=== PATIENT | female | born 1995 | race Two or more races ===

== ENCOUNTER 2025-04-02 12:15 | Emergency (ER) | payer MEDICAID, SELFPAY ==
[2025-04-02 12:21] VITALS: BP 100/70; PULSE 86; RESP 18; TEMP 36.8; O2SAT 98; BMI 29.3
--- NOTE | 2025-04-02 12:36 | CRLHL7_ITS ---
For Patients: As a result of the Century Cures Act, medical imaging exams and procedure reports are released immediately into your electronic medical record. You may view this report before your referring provider. If you have questions, please contact your health care provider. INDICATION: Nausea, vomiting and right upper quadrant pain TECHNIQUE: Ultrasound abdomen limited. Sonographic images of the right upper quadrant were obtained using grant-scale and color Doppler images. COMPARISON: None FINDINGS: Liver: Normal in size and echotexture. No masses. No intrahepatic biliary dilatation. Gallbladder: There is demonstration questionable irregular thickening and decompressed appearance of a gallbladder with likely a 1 centimeter shadowing calculus at the level of the cystic duct.. There is sonographic tenderness to palpation. Common bile duct: 3 mm. Pancreas: Normal. Right kidney: Normal in size. Normal echotexture and cortex. No masses, stones, or hydronephrosis. Vasculature: Proximal abdominal aorta and IVC are normal. IMPRESSION: 1. Demonstration of a somewhat contracted appearance of a gallbladder within the gallbladder lumen with shadowing calculi and sonographic tenderness to palpation likely representing acute cholecystitis. Correlate with apparent history of prior cholecystectomy and consider follow-up with cross-sectional study such as CT versus MR for improved characterization. Dictated by Castillo Casillas MD @ 04/02/2025 2:27:18 PM (Electronically Signed)
[2025-04-02 12:54] LABS: Appearance Urine Clear (Clear)
[2025-04-02 13:01] LABS: Ur HCG Qualitative* Negative (Negative)
--- NOTE | 2025-04-02 13:03 | ED.GENADULT ---
HPI - General Adult General Chief complaint: Nausea/Vomiting Stated complaint: naueated/headache Time Seen by Provider: 04/02/25 12:17 Source: patient Mode of arrival: ambulatory Limitations: no limitations History of Present Illness HPI narrative: 29-year-old female presenting today with nausea, vomiting and diarrhea for 2 weeks. States that she has felt unwell for the last 2 weeks, has not been eating very much because even the side of food makes her want to vomit. Has been vomiting sporadically over the last 2 weeks. Feels constantly nauseated. States that she has around 4 episodes of diarrhea per day. Denies any blood in her vomit or stool. Denies any urinary symptoms such as increased frequency, urgency or dysuria. Patient has an IUD in, last period was about a month ago and was normal. Is uncertain if she is losing weight. Patient also complains of epigastric pain that comes and goes. She thinks it gets worse after she eats. She feels palpitations, feels like her heart is going to burst out of her chest at times. States that she saw her primary care provider who started her on lorazepam. This does not help her, just makes her sleepy. She was also started on omeprazole 1 or 2 days ago when she was seen at a different ER for the same symptoms. She states that some blood work was done but nothing else and she was given no answers. Related Data Home Medications ?Medication ?Instructions ?Recorded ?Confirmed omeprazole 20 mg delayed 20 mg PO DAILY 04/02/25 04/02/25 release,disintegrating tablet Allergies Allergy/AdvReac Type Severity Reaction Status Date / Time No Known Drug Allergies Allergy Verified 04/02/25 12:26 Review of Systems Status of ROS: Reports: 10 or more systems reviewed and unremarkable except as noted in History and below [facility] Social History Smoking Status: Never smoker Do you use any of these nicotine containing products: None Second hand tobacco smoke exposure: No How often do you have a drink containing alcohol: never AUDIT-C Alcohol total score: 0 Non-prescribed substance use: denies use Exam Narrative: Exam Narrative: Well-nourished well-developed patient in no acute distress. Alert and oriented. Answers questions appropriately. Mood is blue. Affect is slightly flat. Her Thoughts are goal oriented and rational. No tangential or magical thinking noted. Patient speaks in full sentences without needing to catch her breath. She often times whispers her answers. HEENT: Normocephalic atraumatic. Pupils are equally round reactive to light. Extraocular muscles are intact. Conjunctivae are moist without any icterus noted. Moist mucous membranes. Posterior pharynx is normal. Neck is soft without any lymphadenopathy or thyromegaly. No masses are appreciated. Cardiovascular: Heart is regular rate and rhythm S1 and S2 are present without any murmurs. Lungs: Clear to auscultation bilaterally no wheezes rhonchi or rales are appreciated. Patient takes deep breaths without any discomfort. Abdomen: Soft and nondistended with normal bowel sounds. Mild epigastric and right upper quadrant tenderness. Extremities: Bilateral lower extremities are without edema. Skin: Well perfused without any obvious rashes. Const: Vital Signs, click to edit/add: Vital Signs - 24 hr 04/02/25 12:21 04/02/25 13:44 Temperature 98.2 F 96.8 F L Pulse Rate [Right Pulse Oximeter] 86 85 Respiratory Rate 18 21 Blood Pressure [Ri ght Upper Arm] 100/70 112/71 Pulse Oximetry 98 100 Oxygen Delivery Me thod Room Air Room Air Course Course ED Course: Differential is very broad and ranges from depression to gastroenteritis to to gallstones to peptic ulcer disease to irritable bowel syndrome. EKG, read by me, shows normal sinus rhythm with a pulse of 75 with normal QRS, QTC and ME intervals. Blood work was unremarkable. While waiting for her results, I was able to review some of the patient's medical records, she has been to the ER twice in the clinic once for these symptoms. Blood work has been unremarkable each time however she was tested for H pylori on the and this did just result back positive. Right upper quadrant ultrasound shows a contracted gallbladder, cholelithiasis and concern for cholecystitis. However given her normal lab work and the fact that her pain is not getting any worse, I do think that she has cholecystitis clinically at this time. I did discussed patient with Dr. Lucero, who recommends treatment of H pylori and follow up outpatient in the surgical clinic. Vital Signs Vital signs: Initial Vital Signs Temperature 98.2 F 04/02/25 12:21 Temperature Source Temporal Artery Scan 04/02/25 12:21 Pulse Rate 86 04/02/25 12:21 Pulse Rhythm Regular 04/02/25 12:21 Pulse Strength 3+ Normal 04/02/25 12:21 Respiratory Rate 18 04/02/25 12:21 Blood Pressure 100/70 04/02/25 12:21 Blood Pressure Mean 80 04/02/25 12:21 Blood Pressure Position Sitting 04/02/25 12:21 Pulse Oximetry 98 04/02/25 12:21 Oxygen Delivery Method Room Air 04/02/25 12:21 Vital Signs Temperature 98.2 F 04/02/25 12:21 Pulse Rate 86 04/02/25 12:21 Respiratory Rate 18 04/02/25 12:21 Blood Pressure 100/70 04/02/25 12:21 Pulse Oximetry 98 04/02/25 12:21 Oxygen Delivery Method Room Air 04/02/25 12:21 Temperature 96.8 F L 04/02/25 13:44 Pulse Rate 85 04/02/25 13:44 Respiratory Rate 21 04/02/25 13:44 Blood Pressure 112/71 04/02/25 13:44 Pulse Oximetry 100 04/02/25 13:44 Oxygen Delivery Method Room Air 04/02/25 13:44 Medications Administered Medications: Discontinued Medications Generic Name Dose Route Start Last Admin Trade Name Freq PRN Reason Stop Dose Admin Sodium Chloride 1,000 mls @ 1,000 mls/hr 04/02/25 12:45 04/02/25 13:25 0.9 % Sodium Chloride 1000 Ml IV 04/02/25 13:44 1,000 mls/hr .Q1H JOSSUE Administration Ondansetron HCl 4 mg 04/02/25 12:35 04/02/25 13:25 Ondansetron 2 Mg/Ml Inj IVP 04/02/25 12:36 4 mg ONCE ONE Administration Medical Decision Making MDM Narrative Medical decision making narrative: 29-year-old female with H pylori. Treatment has already been called into her pharmacy for her. She also has cholelithiasis-patient will follow up outpatient in the surgical clinic next week. Medical Records Medical records reviewed: Yes I reviewed the patient's medical records Lab Data Lab results reviewed: Yes I reviewed the patient's lab results Labs: Lab Results 04/02/25 04/02/25 Range/Units 12:45 13:16 WBC 7.22 (4.50-11.00) K/uL RBC 5.25 H (4.00-5.20) m/uL Hgb 14.4 (12.0-16.0) gm/dL Hct 43.1 (33.0-51.0) % MCV 82 (80-100) fL MCH 27 (26-34) pg MCHC 33 (32-36) gm/dL RDW Coeff of Patricio 13.2 (11.5-15.5) % Plt Count 285 (140-440) K/uL Neut % (Auto) 66.3 (42.0-72.0) % Lymph % (Auto) 24.2 (20-44) % Ramsey % (Auto) 6.4 (0.0-11.0) % Eos % (Auto) 2.6 (0.0-7.0) % Baso % (Auto) 0.4 (0.0-3.0) % Neut # (Auto) 4.78 (1.7-7.0) K/uL Lymph # (Auto) 1.75 (0.90-2.90) K/uL Ramsey # (Auto) 0.50 (0.00-0.90) K/UL Eos # (Auto) 0.19 (0.00-0.50) K/uL Baso # (Auto) 0.03 (0.00-0.30) K/uL Abs Immat Gran (auto) 0.01 (0.00-0.30) K/uL Imm/Tot Granulo (auto) 0.1 % Sodium 138 (135-149) mmol/L Potassium 3.7 (3.6-5.1) mmol/L Chloride 104 (96-114) mmol/L Carbon Dioxide 25 (20-32) mmol/L Anion Gap 9 (7-15) mEq/L BUN 3 L (5-24) mg/dL Creatinine 0.5 (0.5-1.5) mg/dL Estimated Creat Clear 149.39 Estimated GFR 130 ml/min Glucose 97 (60-115) mg/dL Lactate 0.7 (0.5-1.9) mmol/L Calcium 9.9 (8.4-10.6) mg/dL Magnesium 1.9 (1.5-2.6) mg/dL Total Bilirubin 0.6 (0.1-1.5) mg/dL Direct Bilirubin 0.1 (0.0-0.5) mg/dL AST 26 (12-35) U/L ALT 14 (4-35) U/L Alkaline Phosphatase 96 (40-150) U/L Troponin I < 0.01 (0.01-0.04) ng/mL C-Reactive Protein 0.7 (0.5-1.0) mg/dL Total Protein 8.6 H (6.0-8.3) g/dL Albumin 4.5 (3.3-5.0) g/dL Lipase 32 (23-300) U/L TSH 0.500 (0.270-4.20) uIU/mL Urine Color Yellow (Yellow) Urine Appearance Clear (Clear) Urine pH 7.0 (5.0-8.5) Ur Specific [place] 1.010 (1.000-1.030) Urine Protein Negative (Negative) Urine Glucose (UA) Negative (Negative) Urine Ketones Negative (Negative) Urine Blood Negative (Negative) Urine Nitrite Negative (Negative) Urine Bilirubin Negative (Negative) Urine Urobilinogen 0.2 (0.2-1.0) Ur Leukocyte Esterase Negative (Negative) Urine RBC 0-2 (0-2) Urine WBC 0-2 (0-5) Ur Squamous Epith Cells Few (None-Few) Urine Bacteria None (None) Urine HCG, Qual Negative (Negative) Salicylates < 1.0 L (1.0-10) mg/dL Urine Opiates Screen Negative (Negative) Ur Oxycodone Screen Negative (Negative) Urine Methadone Screen Negative (Negative) Acetaminophen < 10.0 (10.0-30.0) ug/mL Ur Barbiturates Screen Negative (Negative) U Tricyclic Antidepress Negative (Negative) Ur Phencyclidine Scrn Negative (Negative) Ur Amphetamines Screen Negative (Negative) U Methamphetamines Scrn Negative (Negative) U Benzodiazepines Scrn Negative (Negative) Urine Cocaine Screen Negative (Negative) U Marijuana (THC) Screen Negative (Negative) Ur Drug Screen Comment See Note Ethyl Alcohol < 0.01 (0.01-0.03) % Monoscreen Negative (Negative) Imaging Data US - abdomen: Attestation: I have reviewed the pertinent imaging results. Radiologist's impression: TECHNIQUE: Ultrasound abdomen limited. Sonographic images of the right upper quadrant were obtained using grant-scale and color Doppler images. COMPARISON: None FINDINGS: Liver: Normal in size and echotexture. No masses. No intrahepatic biliary dilatation. Gallbladder: There is demonstration questionable irregular thickening and decompressed appearance of a gallbladder with likely a 1 centimeter shadowing calculus at the level of the cystic duct.. There is sonographic tenderness to palpation. Common bile duct: 3 mm. Pancreas: Normal. Right kidney: Normal in size. Normal echotexture and cortex. No masses, stones, or hydronephrosis. Vasculature: Proximal abdominal aorta and IVC are normal. IMPRESSION: 1. Demonstration of a somewhat contracted appearance of a gallbladder within the gallbladder lumen with shadowing calculi and sonographic tenderness to palpation likely representing acute cholecystitis. Correlate with apparent history of prior cholecystectomy and consider follow-up with cross-sectional study such as CT versus MR for improved characterization. ECG Data Attestation: I personally reviewed and interpreted this ECG as follows: Discharge Plan Discharge Clinical Impression: H. pylori infection, Cholelithiasis Patient Disposition: Home, Self-Care Condition: Stable Additional Instructions: You were diagnosed with a Helicobacter pylori infection that can cause abdominal discomfort, nausea and vomiting just like you are having. Treatment consists of taking 4 medications-all of these have been called into your pharmacy for you. You will also be given the phone number to the Surgical Outpatient Clinic today. You should call this number first thing Friday to set up a follow-up appointment late next week with Dr. Lucero or 1 of her partners. At this visit you will discuss the stones in your gallbladder and how to proceed. Prescriptions: No Action omeprazole 20 mg tablet,disintegrat, delay rel 20 mg PO DAILY Follow Up/Referrals: Provider,Not a Local [Primary Care Provider, Family Practice] Stand Alone Forms: [employer] Info Instructions
--- OUTSIDE RECORDS SUMMARY | 2025-04-02 13:03 | XMS_ITS | Clinical Summary ---
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 H.pylori Ag: Detected Reference Range: Not Detected Stool STOOL SPECIMEN / Unknown 03/31/2025 5:00 PM CDT 03/31/2025 7:28 PM CDT Estefanía BUENO MICROBIOLOGY Final Resu lt [employer] [facility] [address] [place] [address], [employer] [address] [place] [address] * TROPONIN T (HS) ACUTE W/2HR REFLEX (03/29/2025 12:19 PM CDT) Pathologist [facility] TROPONIN T HS <6 6-10 ng/L ng/L 03/29/2025 12:50 PM CDT [facility] Blood BLOOD SPECIMEN / Unknown Venipuncture / Unknown 03/29/2025 12:19 PM CDT 03/29/2025 12:22 PM CDT Narrative [facility] - 03/29/2025 12:50 PM CDT hs-cTnT (Elecsys Troponin T Gen 5) concentration (s) above the sex-specific 99th percentile (16 ng/L or greater for males or 11 ng/L or greater for females) are indicative of myocardial injury. If initial hs-cTnT <=100 ng/L at presentation, a 0h/2h ABSOLUTE (ng/L) delta change (rising or falling) of >=10 ng/L suggests a significant change, whereas a 0h/2h delta change <=3 ng/L suggests no significant change. If initial hs-cTnT >100 ng/L at presentation, a 0h/2h/ RELATIVE (percent, %) delta change of 20% is suggested to distinguish patients with acute vs. chronic myocardial injury. There are multiple etiologies that can cause hs-cTnT increases above the 99th percentile (myocardial injury) other than acute myocardial infarction. Clinical context and careful clinical evaluation are critical for diagnosis and risk-stratification. The diagnosis of acute myocardial infarction requires a rising and/or falling pattern in hs-cTnT concentrations with at least one value above the sex-specific 99th percentile PLUS at least one of the following clinical criteria: ischemic symptoms, new or presumed new significant ST-T wave changes or new LBBB, development of pathological Q waves, imaging evidence of new loss of viable myocardium or new regional wall motion abnormality, or identification of intracoronary atherothrombosis or an acute angiographic culprit on coronary angiography. In appropriate low-risk patients with a non-ischemic electrocardiogram without active chest pain with a symptom onset >3-hours without recurrence, a single initial hs-cTnT<6 ng/L identifies patient with a very low risk in emergency department patient population. Daniel BUENO CHEMISTRY Fin al Result Performing Organization Address [facility] de Phone Number [facility] [address] [place] [address] [phone] * TSH (03/29/2025 12:19 PM CDT) [facility] Signature TSH 0.75 0.27 - 4.20 uIU/mL 03/29/2025 12:50 PM CDT [facility] Blood BLOOD SPECIMEN / Unknown Venipuncture / Unknown 03/29/2025 12:19 PM CDT 03/29/2025 12:22 PM CDT [facility] - 03/29/2025 12:50 PM CDT In Adults, TSH values between 5.00 and 10.00 uIU/ml do not necessarily indicate the presence of Hypothyroidism. Correlation with clinical findings such as presence of goiter and/or Thyroperoxidase (TPO) Antibody may be helpful. For more information please refer to MEGHAN 2004; 291: 228-238. Daniel BUEON CHEMISTRY Fin al Result Performing Organization Address [facility] de Phone Number [facility] [address] [place] [id number] * (ABNORMAL) C-REACTIVE PROTEIN (03/29/2025 12:19 PM CDT) [facility] C-REACTIVE PROTEIN 0.7(H) <0.5 mg/dL 03/29/2025 12:50 PM CDT [facility] Blood BLOOD SPECIMEN / Unknown Venipuncture / Unknown 03/29/2025 12:19 PM CDT 03/29/2025 12:22 PM CDT Daniel BUENO CHEMISTRY Fin al Result Performing Organization Address [facility] Co de Phone Number [facility] [address] [place] [address] * EKG 12 LEAD (03/29/2025 12:03 PM CDT) [facility] Interpretation Normal sinus rhythm with sinus arrhythmia Nonspecific ST abnormality Abnormal ECG No previous ECGs available baseline artifact intervals normal no STEMI no previous for comparison BEYOND NOW Ventricular Rate 90 BPM BEYOND NOW Atrial Rate 90 BPM BEYOND NOW P-R Interval 154 ms BEYOND NOW QRS Duration 70 ms BEYOND NOW QT 332 ms BEYOND NOW QTc 406 ms BEYOND NOW P [place] 57 degrees BEYOND NOW R [place] 79 degrees BEYOND NOW T [place] 57 degrees BEYOND NOW 03/29/2025 12:0 3 PM CDT 03/29/2025 1:14 PM CDT Daniel BUENO EKG ORD Fin al Result Performing Organization Address City/[facility] Co de Phone Number BEYOND NOW [place], [place] * STREP A PCR (01/30/2025 3:08 PM CDT) Pathologist [facility] GROUP A STREP Negative 01/31/2025 5:08 PM CDT [facility] Throat SPECIMEN FROM THROAT / Unknown Non-Blood / Unknown 01/30/2025 3:08 PM CDT 01/30/2025 3:28 PM CDT Maria R E Furlong HEAD REFRIGERATING ENGINEER MICROBIOLOGY Final Result [facility] [address] [place] [address], [place] * THROAT RAPID STREP A WITH REFLEX (01/30/2025 3:08 PM CDT) STREP A ANTIGEN Negative 01/30/2025 3:28 PM CDT [facility] Comment:PCR to follow. Throat SPECIMEN FROM THROAT / Unknown Non-Blood / Unknown 01/30/2025 3:08 PM CDT 01/30/2025 3:14 PM CDT us Maria R E Igorlong HEAD REFRIGERATING ENGINEER MICROBIOLOGY Final Result [facility] [address] [place] [address] * REGULATORY LEADER THIN PREP PAP SCREEN IMAGED (10/11/2024 4:23 PM CASH MANAGEMENT ASSOCIATE) Case Report Gynecologic Cytology Report Case: [id number] Authorizing Provider: Estefanía Mercado PA Collected: 10/11/2024 1623 Ordering Location: [facility] Received: 10/11/2024 [facility] First Screen: Kaleigh Mcmanus Rescreen: Evon Wheeler Specimen: REGULATORY LEADER ThinPrep Vial Screening, Cervical 10/26/2024 1:50 PM CASH MANAGEMENT ASSOCIATE [employer]- [facility] INTERPRETATION/ RESULT UNSATISFACTORY FOR EVALUATION (UNS) (none) 10/26/2024 1:[address] [facility] at 1350 CASH MANAGEMENT ASSOCIATE SPECIMEN ADEQUACY Specimen processed and examined, but unsatisfactory for evaluation of epithelial abnormality because of: Scant cellularity 10/26/2024 1:50 PM CASH MANAGEMENT ASSOCIATE [employer] EN[facility]AL LABORATORY HPV REQUEST HPV and PAP 10/26/2024 1:50 PM CASH MANAGEMENT ASSOCIATE [employer] [facility] LAB[facility]AT[facility] Date of LMP 09/27/2024 10/26/2024 1:50 PM CASH MANAGEMENT ASSOCIATE [employer] [facility]AT[facility] Last Pap Date 09/18/17 10/26/2024 1:50 PM CASH MANAGEMENT ASSOCIATE [facility] Last Pap Result NIL 1:50 PM CASH MANAGEMENT ASSOCIATE [facility] Abnormal Pap or [place] Bx in last 5 years No 10/26/2024 1:50 PM CASH MANAGEMENT ASSOCIATE [facility] LAB[facility]ATORY Menstrual Status Hormonally Suppressed 10/26/2024 1:50 PM CASH MANAGEMENT ASSOCIATE [facility] [place] Bx Done Today No 10/26/2024 1:50 PM CASH MANAGEMENT ASSOCIATE [facility] Additional Information None given 10/26/2024 1:50 PM CASH MANAGEMENT ASSOCIATE [facility] Comment: Cytology is screened at [facility] - [address], [place] [address] and [facility] - [address], [place] [address] and [facility] - [address] [place] [address] Interpreted at [facility] - [address], [place] [address] Automated Review Successful 10/26/2024 1:50 PM CASH MANAGEMENT ASSOCIATE [facility] Comment:Specimen processed s uccessfully by automated facility maintenance supervisor device, ThinPrep Imaging System, [employer] ANCILLARY TESTING REGULATORY LEADER HPV Ordered, Please see separate report 10/26/2024 1:50 PM CASH MANAGEMENT ASSOCIATE [facility] Note The pap test is a screening technique, not a diagnostic procedure. It is used primarily to screen for squamous cancers and precursor lesions. Published studies have shown that it is subject to both false negative and false positive results. The pap test should not be used as the sole means to diagnose or exclude pre-malignant and malignant lesions. 10/26/2024 1:50 PM CASH MANAGEMENT ASSOCIATE [facility] Other (Cervical) Non-Blood / Unknown 10/11/2024 4:23 PM CASH MANAGEMENT ASSOCIATE 10/11/2024 4:23 PM CASH MANAGEMENT ASSOCIATE us Estefanía BUENO PATHOLOGY/CYTOLOGY Final R esult [facility] [address] [place] [address], [place] * HIV EXTERNAL (03/16/2020) EXTERNAL HIV Negative [facility] Blood BLOOD SPECIMEN / Unknown [facility] Final Result [facility] [address] [place] [address] from Last 3 Months or Most Recently Relevant to Health Maintenance [place] [facility] [place] [id number] [address] [address] [place] [address] Advance Directives * Full Code (Latest Code Status on File) Date Activated Date Inactivated Comments 08/14/2023 6:02 PM 08/16/2023 2:44 PM Question Answer Comments Code Status Discussion: Reviewed Preferences * Full Code Date Activated Date Inactivated Comments 08/14/2023 11:52 AM 08/14/2023 6:02 PM Question Answer Comments Code Status Discussion: Unable to Assess Preferences, Provider to review later * Full Code Date Activated Date Inactivated Comments 08/06/2023 8:02 PM 08/10/2023 4:53 PM Question Answer Comments Code Status Discussion: Reviewed Preferences * Full Code Date Activated Date Inactivated Comments 10/13/2020 7:44 AM 10/16/2020 4:09 PM Question Answer Comments Code Status Discussion: Not Discussed * Full Code Date Activated Date Inactivated Comments 03/13/2019 3:29 PM 03/15/2019 4:43 PM Care Teams Lace Winder Relationship Specialty Start Date End Date Estefanía Mercado PA [address] [place] [address] PCP - General Physician Clerical Aide Teacher 10/29/16
[2025-04-02 13:05] LABS: Cannabinoid Screen Urine Negative (Negative); Methamphetamines Screen Urine Negative (Negative); Tricyclic Antidepressant Urine Negative (Negative)
[2025-04-02 13:25] LABS: Lactate* 0.7 mmol/L (0.5-1.9)
[2025-04-02] MEDS: ONDANSETRON 2 MG/ML inj 4 MG IVP (13:25)
[2025-04-02 13:44] VITALS: BP 112/71; PULSE 85; RESP 21; TEMP 36; O2SAT 100
[2025-04-02 13:48] LABS: Hematocrit 43.1 % (33.0-51.0); Hemoglobin* 14.4 gm/dL (12.0-16.0); Immature Granulocytes Abs Auto 0.01 K/uL (0.00-0.30); Immature Granulocytes Pct Auto 0.1 %; Lymphocytes Absolute Auto 1.75 K/uL (0.90-2.90); Mean Corpuscular HGB Conc 33 gm/dL (32-36); Mean Corpuscular Hemoglobin 27 pg (26-34); Mean Corpuscular Volume 82 fL (80-100); RDW Coefficient of Variation % 13.2 % (11.5-15.5); Red Blood Count 5.25 m/uL (4.00-5.20); White Blood Count* 7.22 K/uL (4.50-11.00)
[2025-04-02 13:49] LABS: Albumin* 4.5 g/dL (3.3-5.0); Chloride* 104 mmol/L (96-114); Slide Review Reflex No; Sodium* 138 mmol/L (135-149)
[2025-04-02 13:50] LABS: Potassium* 3.7 mmol/L (3.6-5.1)
[2025-04-02 13:52] LABS: Anion Gap 9 mEq/L (7-15); Blood Urea Nitrogen* 3 mg/dL (5-24); Carbon Dioxide* 25 mmol/L (20-32); Creatinine* 0.5 mg/dL (0.5-1.5); Est. Creatinine Clearance* 149.39; Estimated Glomerular Filt Rate 130 ml/min
[2025-04-02 13:53] LABS: Alanine Aminotransferase* 14 U/L (4-35); Alkaline Phosphatase* 96 U/L (40-150); Aspartate Amino Transferase* 26 U/L (12-35); Bilirubin Direct* 0.1 mg/dL (0.0-0.5); Bilirubin Total* 0.6 mg/dL (0.1-1.5); Calcium* 9.9 mg/dL (8.4-10.6); Glucose* 97 mg/dL (60-115); Total Protein* 8.6 g/dL (6.0-8.3)
[2025-04-02 13:56] LABS: Mono Screen* Negative (Negative)
[2025-04-02 14:01] LABS: Acetaminophen* < 10.0 ug/mL (10.0-30.0); Ethanol* < 0.01 % (0.01-0.03); Salicylate* < 1.0 mg/dL (1.0-10)
== END 2025-04-02 15:42 | disposition home or self-care (01) ==
PROVIDERS: Emergency Provider Family Medicine
DX: K80.20 Calculus of gallbladder without cholecystitis without obstruction (principal); B96.81 Helicobacter pylori [H. pylori] as the cause of diseases classified elsewhere
CPT/HCPCS: 36415; 76705; 80048; 80076; 80143; 80179; 80306; 81001; 81025; 82077; 83605; 83690; 83735; 84443; 84484; 85025; 86140; 86308; 87045; 87046; 87086; 87427; 87493; 93005; 96374; 99284; J2405; J7030

== ENCOUNTER 2025-04-17 02:14 | Day surgery (SDC) | payer MEDICAID, SELFPAY ==
[2025-04-17] VITALS (31 sets, daily range): BP systolic 97–128; BP diastolic 57–90; PULSE 61–108; RESP 14–18; TEMP 36.3–37.4; O2SAT 94–100; BMI 29.4; BMI 29.0
--- OUTSIDE RECORDS SUMMARY | 2025-04-17 02:17 | XMS_ITS | Clinical Summary ---
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 BEYOND NOW QRS Duration 70 ms BEYOND NOW QT 332 ms BEYOND NOW QTc 406 ms BEYOND NOW P [place] 57 degrees BEYOND NOW R [place] 79 degrees BEYOND NOW T [place] 57 degrees BEYOND NOW 03/29/2025 12:0 3 PM CDT 03/29/2025 1:14 PM CDT Daniel BUENO EKG ORD Fin al Result BEYOND NOW [place], [place] * STREP A PCR (01/30/2025 3:08 PM CDT) GROUP A STREP Negative 01/31/2025 5:08 PM CDT [facility] Throat SPECIMEN FROM THROAT / Unknown Non-Blood / Unknown 01/30/2025 3:08 PM CDT 01/30/2025 3:28 PM CDT Maria R June INSURANCE EXAMINER MICROBIOLOGY Sonia l Result Performing Organization Address [facility] Co de Phone Number [facility] [address] [place] [address], [place] * THROAT RAPID STREP A WITH REFLEX (01/30/2025 3:08 PM CDT) STREP A ANTIGEN Negative 01/30/2025 3:28 PM CDT [facility] Comment:PCR to follow. Throat SPECIMEN FROM THROAT / Unknown Non-Blood / Unknown 01/30/2025 3:08 PM CDT 01/30/2025 3:14 PM CDT Maria R June INSURANCE EXAMINER MICROBIOLOGY Sonia l Result Performing Organization Address [facility]/ZIP Co de Phone Number [facility] [address] [place] [address] * CURATOR [employer] THIN PREP PAP SCREEN IMAGED (10/11/2024 4:23 PM STOCK OR DELIVERY CLERK) Case Report Gynecologic Cytology Report Case: [id number] Authorizing Provider: Estefanía Mercado PA Collected: 10/11/2024 1623 Ordering Location: [facility] Received: 10/11/2024 1623 Clinic First Screen: Kaleigh Mcmanus Rescreen: Evon Wheeler Specimen: [employer]ATOR [employer] ThinPrep Vial Screening, Cervical 10/26/2024 1:50 PM STOCK OR DELIVERY CLERK [facility] INTERPRETATION/ RESULT UNSATISFACTORY FOR EVALUATION (UNS) (none) 10/26/2024 1:50 PM STOCK OR DELIVERY CLERK [facility] at 1350 STOCK OR DELIVERY CLERK SPECIMEN ADEQUACY Specimen processed and examined, but unsatisfactory for evaluation of epithelial abnormality because of: Scant cellularity 10/26/2024 1:50 PM STOCK OR DELIVERY CLERK [facility] HPV REQUEST HPV and PAP 10/26/2024 1:50 PM STOCK OR DELIVERY CLERK [facility] Date of LMP 09/27/2024 10/26/2024 1:50 PM STOCK OR DELIVERY CLERK [facility] Last Pap Date 09/18/17 10/26/2024 1:50 PM STOCK OR DELIVERY CLERK [facility] Last Pap Result NIL 1:50 PM STOCK OR DELIVERY CLERK [facility] Abnormal Pap or [place] Bx in last 5 years No 10/26/2024 1:50 PM STOCK OR DELIVERY CLERK [facility] Menstrual Status Hormonally Suppressed 10/26/2024 1:50 PM STOCK OR DELIVERY CLERK [facility] [place] Bx Done Today No 10/26/2024 1:50 PM STOCK OR DELIVERY CLERK [facility] Additional Information None given 10/26/2024 1:50 PM STOCK OR DELIVERY CLERK [facility] Comment: Cytology is screened at [facility] - [address], [place] [address] and [facility] - [address], [place] [address] and [facility] - [address] [place] [address] Interpreted at [facility] - [address], [place] [address] Automated Review Successful 10/26/2024 1:50 PM STOCK OR DELIVERY CLERK [facility] Comment:Specimen processed s uccessfully by automated weekend receptionist device, ThinPrep Imaging System, [employer] ANCILLARY TESTING CURATOR [employer]OOLOG[employer] MUSE[employer] HPV Ordered, Please see separate report 10/26/2024 1:50 PM STOCK OR DELIVERY CLERK [facility] Note The pap test is a screening technique, not a diagnostic procedure. It is used primarily to screen for squamous cancers and precursor lesions. Published studies have shown that it is subject to both false negative and false positive results. The pap test should not be used as the sole means to diagnose or exclude pre-malignant and malignant lesions. 10/26/2024 1:50 PM STOCK OR DELIVERY CLERK [facility] Other (Cervical) Non-Blood / Unknown 10/11/2024 4:23 PM STOCK OR DELIVERY CLERK 10/11/2024 4:23 PM STOCK OR DELIVERY CLERK Estefanía BUENO PATHOLOGY/CYTOLOGY Final R esult [facility] [address] [place] [address], * HIV EXTERNAL (03/16/2020) EXTERNAL HIV Negative [facility] Blood BLOOD SPECIMEN / Unknown [facility] Final Result [facility] [address] [place] [address] from Last 3 Months or Most Recently Relevant to Health Maintenance Insurance [facility] [place] [id number] [address] [address] [place] [address] Advance Directives * Full Code (Latest Code [...] 3:29 PM 03/15/2019 4:43 PM Care Teams Fishing Tool Operator Relationship Specialty Start Date End Date Estefanía Mercado PA [address] [place] [address] PCP - General Physician Rate Clerk 10/29/16
[2025-04-17 02:41] LABS: Appearance Urine Clear (Clear)
--- NOTE | 2025-04-17 03:08 | CRLHL7_ITS ---
For Patients: As a result of the Century Cures Act, medical imaging exams and procedure reports are released immediately into your electronic medical record. You may view this report before your referring provider. If you have questions, please contact your health care provider. INDICATION: Right upper quadrant pain. Known stones and gallbladder wall thickening 2 weeks ago COMPARISON: 04/02/2025 TECHNIQUE: Gerard-scale and color Doppler ultrasound of the right upper quadrant. FINDINGS: Pancreas: Largely obscured by bowel gas but normal where seen. Liver: Normal hepatic echogenicity and normal echotexture. No mass. Patent portal vein with normal directional flow. Gallbladder and bile ducts: The gallbladder is contracted. Gallbladder wall is circumferentially thick and there is pericholecystic edema. Likely stone near the gallbladder neck. No intrahepatic or extrahepatic biliary ductal dilatation. The common bile duct measures 3 mm. RIGHT Kidney: Renal length: 10.6 cm Parenchyma: Normal thickness and normal echogenicity. Cyst: None Mass: None Calculi: None Urinary tract: Pelvicaliectasis. The anterior to posterior renal pelvic dimension is 4 millimeters. Similar appearance on the prior exam. Abdominal aorta: Normal in the upper abdomen. IVC: Normal in the upper abdomen. Ascites: None. IMPRESSION: Contracted gallbladder with possible stone at the gallbladder neck. Dictated by Sally Babin MD @ 04/17/2025 4:32:12 AM (Electronically Signed)
--- NOTE | 2025-04-17 03:13 | ED_ITS ---
HPI - General Adult General Chief complaint: Nausea/Vomiting Stated complaint: h.Pylori, fast heartbeat, vomiting Time Seen by Provider: 04/17/25 02:47 Source: patient Mode of arrival: ambulatory Limitations: no limitations History of Present Illness HPI narrative: 29-year-old female presents to the emergency department with persistent nausea and epigastric area abdominal pain. Symptoms worse over the past 2 hours per her report. No fever. No trauma or injury. She has had a bumpy 3 week course of abdominal pain and nausea. Prior ED note from 2 weeks ago reviewed. She had normal labs but ultrasound finding showing a gallstone and a questionable area of focal inflammation concerning for possible cholecystitis. Based on the fact her labs were normal and her primary symptom was heartburn, treatment for H pylori was performed. It sounds like this testing was performed through [facility]. Patient reports that she completed the antibiotics today but is not feeling better. It is difficult to hold down any food, difficult to drink. I see that she had an outpatient visit with Dr. Rajan rather than the surgeon that she was encouraged to follow-up with last week. He appropriately [facility] for cholecystectomy and performed preoperative assessment. Patient continues on anti-reflux medication, omeprazole. Did not try any other interventions prior to coming to ED. does not sound as though she has access to anti nausea medications. No bloody stools, no hematemesis. No fever. No prior history of bowel obstructions. She has had 2 prior , the last being almost 2 years ago. That procedure sounds like it was complicated by blood clots and she was treated with blood thinners thereafter the sounds like she does not have to take those long-term. Denies any current urinary or gynecological symptoms Past medical history notable for no major long-term health problems. Recent H pylori diagnosis and questionable borderline cholecystitis from a couple weeks ago. Nonsmoker. Five children. ROS is notable for the GI symptoms as described above, otherwise denies times 12 systems. Related Data Home Medications ?Medication ?Instructions ?Recorded ?Confirmed omeprazole 20 mg delayed 20 mg PO DAILY 04/02/2512/07 release,disintegrating tablet famotidine 20 mg tablet 20 mg PO BID 04/06/25 metoclopramide HCl 10 mg tablet 10 mg PO QID 08/03/25 08/03/25 Allergies Allergy/AdvReac Type Severity Reaction Status Date / Time No Known Drug Allergies Allergy Verified 04/17/25 02:31 [facility] Medical History H. pylori infection ?A04.8 - Other specified bacterial intestinal infections (ICD-10) Cholelithiasis ?K80.20 - Calculus of gallbladder without cholecystitis without obstruction (ICD-10) GERD (gastroesophageal reflux disease) ?K21.9 - Gastro-esophageal reflux disease without esophagitis (ICD-10) Social History Narrative: , five kids, nonsmoker, no EtOH What is your current living situation?: declined to answer Problems where you live: declined to answer In the past 12 months, utilities in danger of being shut off: declined to answer In past 12 months, lack of transportation kept you from medical appts, meetings, work, or getting things needed for daily living: declined to answer In the past 12 mos, have been you worried that your food would run out before you had money to buy more?: declined to answer In the past 12 mos, the food you bought just didn't last and you didn't have money to buy more?: declined to answer Smoking Status: Never smoker Do you use any of these nicotine containing products: None Second hand tobacco smoke exposure: No How often do you have a drink containing alcohol: never AUDIT-C Alcohol total score: 0 Non-prescribed substance use: denies use How often does anyone, including family, friends and others, physically hurt you : decline to answer How often does anyone, including family, friends and others, insult or talk down to you: decline to answer How often does anyone, including family, friends and others, threaten you with harm: decline to answer How often does anyone, including family, friends and others, scream or curse at you: decline to answer Health Related Social Needs: unsheltered homelessness (Z59.02) Exam Const: Vital Signs, click to edit/add: Vital Signs - 24 hr 04/17/25 02:28 04/17/25 03:18 Temperature 98.1 F Pulse Rate [Right Pulse Oximeter] 82 Respiratory Rate 18 Blood Pressure [Ri ght Upper Arm] 104/66 Pulse Oximetry 99 99 Oxygen Delivery Me thod Room Air Documenting provider has reviewed patient's vital signs: yes Common normals: no apparent distress and alert General appearance: cooperative and well kempt HENMT: Common normals: moist oral mucous membranes and oropharynx normal Head and scalp: normal to inspection Face and sinus: normal facial exam Other: Lips are dry and cracked. Remainder of oropharynx is normal Eye: Common normals: conjunctivae normal General eye: normal appearance of both eyes Conjunctiva: conjunctiva(e) normal Neck & C-Spine: Common normals: full ROM, no lymphadenopathy and no meningeal signs General: normal visual inspection Resp: Common normals: normal respiratory effort, no use of accessory muscles and clear to auscultation bilaterally Effort & inspection: able to speak in complete sentences Auscultation: clear to auscultation bilaterally Cardio: Common normals: regular rate, regular rhythm, S1 normal heart sound, S2 normal heart sound and no murmurs Rate: regular rate Rhythm: regular rhythm Heart sounds: S1 normal and S2 normal GI: Common normals: Normal to inspection, nondistended, normoactive bowel sounds present, soft to palpation and no hepatosplenomegaly Palpation: soft and no hepatosplenomegaly Other: Tender to epigastrium but also the right upper quadrant. No rebound tenderness or guarding Back & Pelvis: Common normals: thoracic and lumbar spine normal to inspection Extremity: Common normals: normal to inspection, full ROM and normal capillary refill Neuro: Common normals: moves all extremities Sensorium/orientation: alert Meningeal signs: no meningeal signs Speech: speech normal Psych: Common normals: speech normal Appearance: well kempt Attitude: engaged Activity/motor behavior: appropriate eye contact Speech: normal speech Mood and affect: euthymic mood Insight: insight good Judgement: judgment good Skin: Common normals: no rashes or lesions noted General skin exam: no ra shes or lesions noted Course Course ED Course: 29-year-old female with persistent nausea and abdominal pain with previous normal lab work with the exception of H pylori, recent completion of treatment and prior ultrasound demonstrating gallstones and possible early cholecystitis 2 weeks ago. Complaining mainly of reflux symptoms today, requesting treatment. Differential diagnosis including cholecystitis, pancreatitis, choledocholithiasis, biliary dyskinesia, gastritis, persistent H.pylori symptoms, peptic ulcer, multiple other GI considerations. Will place peripheral IV, give 1 L of IV fluid, typical GI labs, repeat ultrasound. GI cocktail, Zofran ordered. Will have a delay in imaging, will need to call in ultrasound from home. Reevaluation(s) Time of Reevaluation #1: 05:00 Reevaluation #1: Updated patient on findings. Spoke with surgeon. Recommending cholecystectomy which I agree. She has requested admission to the hospitalist, they have been paged. Will give Zosyn. NPO. Dilaudid ordered p.r.n., Zofran ordered p.r.n.. Maintenance LR ordered. test added to labs, suspect will be negative as she has an IUD. Patient is medically cleared for surgery with no additional perioperative recommendations at this time. Update: Hospitalist has accepted care. Vital Signs Vital signs: Initial Vital Signs Temperature 98.1 F 04/17/25 02:28 Temperature Source Temporal Artery Scan 04/17/25 02:28 Pulse Rate 82 04/17/25 02:28 Respiratory Rate 18 04/17/25 02:28 Blood Pressure 104/66 04/17/25 02:28 Blood Pressure Mean 78 04/17/25 02:28 Blood Pressure Position Supine 04/17/25 02:28 Pulse Oximetry 99 04/17/25 02:28 Oxygen Delivery Method Room Air 04/17/25 02:28 Vital Signs Temperature 98.1 F 04/17/25 02:28 Pulse Rate 82 04/17/25 02:28 Respiratory Rate 18 04/17/25 02:28 Blood Pressure 104/66 04/17/25 02:28 Pulse Oximetry 99 04/17/25 02:28 Oxygen Delivery Method Room Air 04/17/25 02:28 Temperature 98.1 F 04/17/25 02:28 Pulse Rate 82 04/17/25 02:28 Respiratory Rate 18 04/17/25 02:28 Blood Pressure 104/66 04/17/25 02:28 Pulse Oximetry 99 04/17/25 03:18 Oxygen Delivery Method Room Air 04/17/25 02:28 Medications Administered Medications: Generic Name Dose Route Start Last Admin Trade Name Freq PRN Reason Stop Dose Admin Hydromorphone HCl 0.2 - 0.5 mg 04/17/25 04:54 04/17/25 05:03 Hydromorphone 0.5 Mg/0.5 Ml Inj IVP 0.5 mg Q1H PRN Administration Pain Piperacillin Sod/Tazobactam 100 mls @ 200 mls/hr 04/17/25 05:00 04/17/25 05:02 Sod 3.375 gm/ Sodium Chloride IVPB 200 mls/hr Q6H JOSSUE Administration Discontinued Medications Generic Name Dose Route Start Last Admin Trade Name Freq PRN Reason Stop Dose Admin Lactated Ringer's 1,000 mls @ 1,000 mls/hr 04/17/25 03:06 04/17/25 04:06 Lactated Ringers 1000 Ml IV 04/17/25 04:05 Infused .Q1H ONE Infusion Lidocaine/Aluminum/Magnesium/Simeth 30 ml 04/17/25 03:06 04/17/25 03:15 Gi Cocktail (Visc Lido/Antacid) 30 Ml PO 04/17/25 03:07 30 ml ONCE ONE Administration Ondansetron HCl 4 mg 04/17/25 03:06 04/17/25 03:14 Ondansetron 2 Mg/Ml Inj IVP 04/17/25 03:07 4 mg ONCE ONE Administration Medical Decision Making Lab Data Lab results reviewed: Yes I reviewed the patient's lab results Lab results narrative: Labs are reassuring. No signs of pancreatitis or biliary obstruction. No significant leukocytosis. test negative as expected. Labs: Lab Results 04/17/25 04/17/25 04/17/25 Range/Units 02:30 03:12 04:31 WBC 7.13 (4.50-11.00) K/uL RBC 5.08 (4.00-5.20) m/uL Hgb 14.0 (12.0-16.0) gm/dL Hct 41.9 (33.0-51.0) % MCV 83 (80-100) fL MCH 28 (26-34) pg MCHC 33 (32-36) gm/dL RDW Coeff of Patricio 13.2 (11.5-15.5) % Plt Count 279 (140-440) K/uL Neut % (Auto) 66.8 (42.0-72.0) % Lymph % (Auto) 21.5 (20-44) % Andrew % (Auto) 9.8 (0.0-11.0) % Eos % (Auto) 1.4 (0.0-7.0) % Baso % (Auto) 0.4 (0.0-3.0) % Neut # (Auto) 4.76 (1.7-7.0) K/uL Lymph # (Auto) 1.53 (0.90-2.90) K/uL Andrew # (Auto) 0.70 (0.00-0.90) K/UL Eos # (Auto) 0.10 (0.00-0.50) K/uL Baso # (Auto) 0.03 (0.00-0.30) K/uL Abs Immat Gran (auto) 0.01 (0.00-0.30) K/uL Imm/Tot Granulo (auto) 0.1 % Sodium 138 (135-149) mmol/L Potassium 3.8 (3.6-5.1) mmol/L Chloride 103 (96-114) mmol/L Carbon Dioxide 27 (20-32) mmol/L Anion Gap 8 (7-15) mEq/L BUN < 2 L (5-24) mg/dL Creatinine 0.5 (0.5-1.5) mg/dL Estimated Creat Clear 143.36 Estimated GFR 130 ml/min Glucose 105 (60-115) mg/dL Calcium 9.6 (8.4-10.6) mg/dL Total Bilirubin 0.5 (0.1-1.5) mg/dL AST 26 (12-35) U/L ALT 19 (4-35) U/L Alkaline Phosphatase 72 (40-150) U/L C-Reactive Protein < 0.5 L (0.5-1.0) mg/dL Total Protein 7.8 (6.0-8.3) g/dL Albumin 4.3 (3.3-5.0) g/dL Lipase 21 L (23-300) U/L Urine Color Yellow (Yellow) Urine Appearance Clear (Clear) Urine pH 6.0 (5.0-8.5) Ur Specific [place] 1.010 (1.000-1.030) Urine Protein Negative (Negative) Urine Glucose (UA) Negative (Negative) Urine Ketones Trace A (Negative) Urine Blood 2+ A (Negative) Urine Nitrite Negative (Negative) Urine Bilirubin Negative (Negative) Urine Urobilinogen 0.2 (0.2-1.0) Ur Leukocyte Esterase 1+ A (Negative) Urine RBC 2-5 A (0-2) Urine WBC 5-10 A (0-5) Ur Squamous Epith Cells Few (None-Few) Urine Bacteria Few A (None) Urine HCG, Qual Negative (Negative) Lab Acknowledgement Test Added Imaging Data US - abdomen: Attestation: I have reviewed the pertinent imaging results. My impression: Thickened gallbladder wall with pericholecystic edema. Gallstone noted as well. Please note the Radiology does not comment in the impression about the thickened gallbladder wall but does mention it in the body of the report. It is quite notable on the image. Radiologist's impression: Gallbladder and bile ducts: The gallbladder is contracted. Gallbladder wall is circumferentially thick and there is pericholecystic edema. Likely stone near the gallbladder neck. No intrahepatic or extrahepatic biliary ductal dilatation. The common bile duct measures 3 mm. RIGHT Kidney: Renal length: 10.6 cm Parenchyma: Normal thickness and normal echogenicity. Cyst: None Mass: None Calculi: None Urinary tract: Pelvicaliectasis. The anterior to posterior renal pelvic dimension is 4 millimeters. Similar appearance on the prior exam. Abdominal aorta: Normal in the upper abdomen. IVC: Normal in the upper abdomen. Ascites: None. IMPRESSION: Contracted gallbladder with possible stone at the gallbladder neck. Dictated by Sally Babin MD @ 04/17/2025 4:32:12 AM Discharge Plan Discharge Clinical Impression: Acute cholecystitis Patient Disposition: XFER to OR Follow Up/Referrals: Moses Rajan MD [Staff Physician, Family Practice]
[2025-04-17] MEDS: ONDANSETRON 2 MG/ML inj 4 MG IVP ×2 (03:14→09:01)
[2025-04-17] MEDS: LACTATED RINGERS 1000 ML 1,000 ML IV (03:14)
[2025-04-17] MEDS: GI COCKTAIL (VISC LIDO/ANTACID) 30 ML PO (03:15)
[2025-04-17 03:18] LABS: Hematocrit* 41.9 % (33.0-51.0); Hemoglobin* 14.0 gm/dL (12.0-16.0); Immature Granulocytes Abs Auto 0.01 K/uL (0.00-0.30); Immature Granulocytes Pct Auto 0.1 %; Lymphocytes Absolute Auto 1.53 K/uL (0.90-2.90); Mean Corpuscular HGB Conc 33 gm/dL (32-36); Mean Corpuscular Hemoglobin 28 pg (26-34); Mean Corpuscular Volume 83 fL (80-100); RDW Coefficient of Variation % 13.2 % (11.5-15.5); Red Blood Count* 5.08 m/uL (4.00-5.20); White Blood Count* 7.13 K/uL (4.50-11.00)
[2025-04-17 03:19] LABS: Slide Review Reflex No
[2025-04-17 03:32] LABS: Albumin* 4.3 g/dL (3.3-5.0); Chloride* 103 mmol/L (96-114); Potassium* 3.8 mmol/L (3.6-5.1); Sodium* 138 mmol/L (135-149)
[2025-04-17 03:34] LABS: Creatinine* 0.5 mg/dL (0.5-1.5); Est. Creatinine Clearance* 143.36; Estimated Glomerular Filt Rate 130 ml/min
[2025-04-17 03:35] LABS: Alanine Aminotransferase* 19 U/L (4-35); Alkaline Phosphatase* 72 U/L (40-150); Anion Gap 8 mEq/L (7-15); Aspartate Amino Transferase* 26 U/L (12-35); Bilirubin Total* 0.5 mg/dL (0.1-1.5); Carbon Dioxide* 27 mmol/L (20-32); Total Protein* 7.8 g/dL (6.0-8.3)
[2025-04-17 03:36] LABS: Blood Urea Nitrogen* < 2 mg/dL (5-24); Calcium* 9.6 mg/dL (8.4-10.6); Glucose* 105 mg/dL (60-115)
[2025-04-17 04:38] LABS: Ur HCG Qualitative* Negative (Negative)
[2025-04-17] MEDS: PIPERACILLIN/TAZOBACTAM 3.375 GM in 0.9 % SODIUM CHLORIDE Mini-bag 100 ML IVPB (05:02)
[2025-04-17] MEDS: LACTATED RINGERS 1000 ML 1,000 ML 125 ML IV (05:33)
--- NOTE | 2025-04-17 06:00 | W.PM.THH&P_ITS ---
Telehealth- H&P: HPI History of Present Illness Date Seen: 04/17/25 Chief complaint: h.Pylori, fast heartbeat, vomiting Narrative: Silvia Rose is seen as an Interactive Telehealth visit. The patient is a 29-year-old female with a past medical history notable for prior VTE in , recent diagnosis of H. pylori infection that is been treated who has been having abdominal pain for 3 weeks. The pain is epigastric, aching, worse with food. The patient says the pain is not really getting worse but has not improved. Is been associated with nausea and vomiting that has been ongoing for the last 3 weeks. Over the last several days the vomiting has been particularly severe. She is also had some occasional chills. She has not noticed a fever. She has not had any chest pain or shortness of breath. She has not had any dysuria. She has had a fairly extensive workup for the abdominal pain she was found to have H. pylori and has been treated. She underwent an ultrasound of the right upper quadrant the initial ultrasound was fairly reassuring, she was actually seen by general surgery and in the setting of H. pylori infection and an equivocal ultrasound planned was for continued monitoring. She presented on the day of admission dehydrated, tachycardic with continued abdominal discomfort. She had a repeat right upper quadrant ultrasound which showed significant gallbladder wall thickening concerning for acute cholecystitis. She was given IV fluids, pain medication and Zosyn. The ER discussed the case with Dr. Lucero from general surgery who plans for cholecystectomy. Review of Systems Status of ROS: Reports: 10 or more systems reviewed and unremarkable except as noted in History and below [facility] Medical History H. pylori infection ?A04.8 - Other specified bacterial intestinal infections (ICD-10) Cholelithiasis ?K80.20 - Calculus of gallbladder without cholecystitis without obstruction (ICD-10) GERD (gastroesophageal reflux disease) ?K21.9 - Gastro-esophageal reflux disease without esophagitis (ICD-10) Social History Narrative: , five kids, nonsmoker, no EtOH What is your current living situation?: declined to answer Problems where you live: declined to answer In the past 12 months, utilities in danger of being shut off: declined to answer In past 12 months, lack of transportation kept you from medical appts, meetings, work, or getting things needed for daily living: declined to answer In the past 12 mos, have been you worried that your food would run out before you had money to buy more?: declined to answer In the past 12 mos, the food you bought just didn't last and you didn't have money to buy more?: declined to answer Smoking Status: Never smoker Do you use any of these nicotine containing products: None Second hand tobacco smoke exposure: No How often do you have a drink containing alcohol: never AUDIT-C Alcohol total score: 0 Non-prescribed substance use: denies use How often does anyone, including family, friends and others, physically hurt you : decline to answer How often does anyone, including family, friends and others, insult or talk down to you: decline to answer How often does anyone, including family, friends and others, threaten you with harm: decline to answer How often does anyone, including family, friends and others, scream or curse at you: decline to answer Health Related Social Needs: unsheltered homelessness (Z59.02) Meds Home Medications and Allergies Home Medications ?Medication ?Instructions ?Recorded ?Confirmed ?Type omeprazole 20 mg delayed 20 mg PO DAILY 04/02/2512/07 History release,disintegrating tablet famotidine 20 mg tablet 20 mg PO BID 04/06/25 History metoclopramide HCl 10 mg tablet 10 mg PO QID 04/17/25 04/17/25 History Allergies Allergy/AdvReac Type Severity Reaction Status Date / Time No Known Drug Allergies Allergy Verified 04/17/25 02:31 Exam Narrative Exam Narrative: Physical Exam GENERAL: ?vital signs reviewed, well developed and nourished, in no distress HEENT: pupils are equal round, extraocular movements are grossly within normal limits and oral mucosa is very dry NECK: Supple without lymphadenopathy or thyromegaly according to nursing staff examination observation HEART: Borderline tachycardic rate and regular rhythm without any rubs, murmurs, or gallops. LUNGS: Clear to auscultation bilaterally with good air movement throughout ABDOMEN: Observation from nurse assisted exam, abdomen appears soft, has mild diffuse tenderness in the upper abdomen, and nondistended with Positive bowel sounds noted. EXTREMITIES: Strength and sensation is observed to be grossly within normal limits in the upper and lower extremities.? No focal strength deficit is obs erved. SKIN:? Observed warm and dry with color normal Const Vital Signs, click to edit/add: Vital Signs - 24 hr 04/17/25 02:28 04/17/25 03:18 04/17/25 03:19 Temperature 98.1 F Pulse Rate 77 Pulse Rate [Right Pulse Oximeter] 82 Respiratory Rate 18 18 Blood Pressure 118/85 Blood Pressure [Right Upper Arm] 104/66 Pulse Oximetry 99 99 100 Oxygen Delivery Method Room Air 04/17/25 03:32 04/17/25 04:01 04/17/25 04:31 Temperature Pulse Rate 71 74 74 Pulse Rate [Right Pulse Oximeter] Respiratory Rate 18 18 18 Blood Pressure 109/73 97/57 L 108/77 Blood Pressure [Right Upper Arm] Pulse Oximetry 100 100 99 Oxygen Delivery Method 04/17/25 05:01 04/17/25 05:32 Temperature 98.2 F 98.2 F Pulse Rate 79 70 Pulse Rate [Right Pulse Oximeter] Respiratory Rate 18 18 Blood Pressure 107/76 101/61 Blood Pressure [Right Upper Arm] Pulse Oximetry 100 98 Oxygen Delivery Method Hospitalist - H&P: Result Labs Labs: Short CBC 04/17/25 Range/Units 03:12 WBC 7.13 (4.50-11.00) K/uL Hgb 14.0 (12.0-16.0) gm/dL Hct 41.9 (33.0-51.0) % Plt Count 279 (140-440) K/uL BMP 04/17/25 03:12 Sodium 138 Potassium 3.8 Chloride 103 Carbon Dioxide 27 BUN < 2 L Creatinine 0.5 Glucose 105 Calcium 9.6 Liver Function 04/17/25 Range/Units 03:12 Total Bilirubin 0.5 (0.1-1.5) mg/dL AST 26 (12-35) U/L ALT 19 (4-35) U/L Alkaline Phosphatase 72 (40-150) U/L Albumin 4.3 (3.3-5.0) g/dL Urine 04/17/25 Range/Units 02:30 Urine Color Yellow (Yellow) Urine Appearance Clear (Clear) Urine pH 6.0 (5.0-8.5) Ur Specific [place] 1.010 (1.000-1.030) Urine Protein Negative (Negative) Urine Glucose (UA) Negative (Negative) Assessment and Plan Assessment and plan (1) History of venous thromboembolism: Status: Acute (2) Acute cholecystitis: Status: Acute Plan Acute cholecystitis Cholelithiasis N.p.o. Continue Zosyn until seen by general surgery Plan for cholecystectomy IV fluids, antiemetics IV hydromorphone as needed for pain Reassuring labs without leukocytosis Abdominal ultrasound: The patient is a 29-year-old female with a past medical history notable for prior VTE in , recent diagnosis of H. pylori infection that is been treated who has been having abdominal pain for 3 weeks. The pain is epigastric, aching, worse with food. The patient says the pain is not really getting worse but has not improved. Is been associated with nausea and vomiting that has been ongoing for the last 3 weeks. Over the last several days the vomiting has been particularly severe. She is also had some occasional chills. She has not noticed a fever. She has not had any chest pain or shortness of breath. She has not had any dysuria. She has had a fairly extensive workup for the abdominal pain she was found to have H. pylori and has been treated. She underwent an ultrasound of the right upper quadrant the initial ultrasound was fairly reassuring, she was actually seen by general surgery and in the setting of H. pylori infection and an equivocal ultrasound planned was for continued monitoring. She presented on the day of admission dehydrated, tachycardic with continued abdominal discomfort. She had a repeat right upper quadrant ultrasound which showed significant gallbladder wall thickening concerning for acute cholecystitis. She was given IV fluids, pain medication and Zosyn. The ER discussed the case with Dr. Lucero from general surgery who plans for cholecystectomy. GERD with H. pylori Per patient recently completed treatment History of VTE SCDs, consider chemoprophylaxis if decreased mobility Prior to admission home medications that were felt to be needed immediately have been ordered. The remainder of the home medications will await pharmacy re conciliation and will be ordered by the attending provider in the a.m. Telehealth Visit: Today's History and Physical is provided via interactive telehealth by Dr. Duncan Infante MD. Patient is located at [facility]. Provider is located at [facility]. Nursing staff assisted with the patient's exam. The visit being done today meets criteria for a telehealth visit and the patient or patients parent/guardian is aware the visit is a telehealth visit. Camera Start Time: 545 Camera End Time: 554 Medical Complexity: High, use of high risk medications including IV opioids ~~~~~~~~~~~~~~~~ Dr. Duncan Infante Telehealth: Statement Statement Telehealth Visit: Today's History and Physical is provided via interactive telehealth by Duncan Infante MD.? Patient is located at [facility].? Provider is located at [facility].? Nursing staff assisted with the patient's exam. The visit being done today meets criteria for a telehealth visit and the patient or patient?s parent/guardian is aware the visit is a telehealth visit. Camera Start Time: 05:45 Camera End Time: 05:55
--- NOTE | 2025-04-17 06:35 | PC.NURSE ---
The patient arrived to the floor via bed at 0530 but was capable of walking herself into her new room, albeit with some dizziness. No pain or nausea on admission. Previously reported pain of the epigastric area. Unremarkable assessment. Requesting her head scarf to stay on while in her surgery. Educated on need to stay NPO before their procedure and we have gone over all admission information. ?
[2025-04-17] MEDS: SODIUM CHLORIDE 0.9 % (FLUSH) 10 ML SYRINGE 5 ML IVF (08:25)
[2025-04-17] MEDS: BUPIVACAINE 0.5% 30 ML 20 ML INJECTION (09:36)
--- NOTE | 2025-04-17 10:37 | PM.GSCN ---
History of Present Illness Consult details Date Seen: 04/17/25 Consult date: 04/17/25 Narrative: Patient is known to this provider. I had an initial consultation with her in clinic for persistent nausea and epigastric abdominal pain. At that time she had a recent diagnosis of H pylori. She has since completed her course of antibiotics and PPI, with no improvement in her symptoms. The pain does get worse after eating. On workup she does have evidence of gallstones and some gallbladder wall thickening on ultrasound. Liver panel is within normal limits Review of Systems Status of ROS: Reports: 10 or more systems reviewed and unremarkable except as noted in History and below [facility] Medical History H. pylori infection ?A04.8 - Other specified bacterial intestinal infections (ICD-10) Cholelithiasis ?K80.20 - Calculus of gallbladder without cholecystitis without obstruction (ICD-10) GERD (gastroesophageal reflux disease) ?K21.9 - Gastro-esophageal reflux disease without esophagitis (ICD-10) Social History Narrative: , five kids, nonsmoker, no EtOH What is your current living situation?: I presently have a place to live Problems where you live: no known problems Problems where you live details: NA In the past 12 months, utilities in danger of being shut off: no In past 12 months, lack of transportation kept you from medical appts, meetings, work, or getting things needed for daily living: no In the past 12 mos, have been you worried that your food would run out before you had money to buy more?: never true In the past 12 mos, the food you bought just didn't last and you didn't have money to buy more?: never true Highest level of school completed/degree received: high school graduate Smoking Status: Never smoker Do you use any of these nicotine containing products: None Second hand tobacco smoke exposure: Yes How often do you have a drink containing alcohol: never AUDIT-C Alcohol total score: 0 Non-prescribed substance use: denies use Caffeine: Yes (Monthly) How often does anyone, including family, friends and others, physically hurt you: never How often does anyone, including family, friends and others, insult or talk down to you: never How often does anyone, including family, friends and others, threaten you with harm: never How often does anyone, including family, friends and others, scream or curse at you: never service: No Meds Home Medications and Allergies Home Medications ?Medication ?Instructions ?Recorded ?Confirmed ?Type famotidine 20 mg tablet 20 mg PO BID 04/06/25 04/17/25 History metoclopramide HCl 10 mg tablet 10 mg PO QID 04/17/25 04/17/25 History omeprazole 20 mg capsule,delayed 20 mg PO BID 04/17/25 04/17/25 History release Allergies Allergy/AdvReac Type Severity Reaction Status Date / Time No Known Drug Allergies Allergy Verified 04/17/25 02:31 Exam Narrative: Exam Narrative: General: Alert and oriented, no acute distress Respiratory: Equal breath rise, maintained on room air CV: Well perfused Abdomen: Soft, nontender and nondistended. Const: Vital Signs, click to edit/add: Vital Signs - 24 hr 04/17/25 02:28 04/17/25 03:18 04/17/25 03:19 Temperature 98.1 F Pulse Rate 77 Pulse Rate [Left P ulse Oximeter] Pulse Rate [Right Pulse Oximeter] 82 Respiratory Rate 18 18 Blood Pressure 118/85 Blood Pressure [Le ft Arm] Blood Pressure [Ri ght Upper Arm] 104/66 Pulse Oximetry 99 99 100 Oxygen Delivery Me thod Room Air 04/17/25 03:32 04/17/25 04:01 04/17/25 04:31 Temperature Pulse Rate 71 74 74 Pulse Rate [Left P ulse Oximeter] Pulse Rate [Right Pulse Oximeter] Respiratory Rate 18 18 18 Blood Pressure 109/73 97/57 L 108/77 Blood Pressure [Le ft Arm] Blood Pressure [Ri ght Upper Arm] Pulse Oximetry 100 100 99 Oxygen Delivery Me thod 04/17/25 05:01 04/17/25 05:32 04/17/25 05:52 Temperature 98.2 F 98.2 F 97.9 F Pulse Rate 79 70 Pulse Rate [Left P ulse Oximeter] 79 Pulse Rate [Right Pulse Oximeter] Respiratory Rate 18 18 16 Blood Pressure 107/76 101/61 Blood Pressure [Le ft Arm] 108/77 Blood Pressure [Ri ght Upper Arm] Pulse Oximetry 100 98 98 Oxygen Delivery Me thod Room Air 04/17/25 05:52 04/17/25 07:41 04/17/25 07:41 Temperature 97.8 F Pulse Rate 62 Pulse Rate [Left P ulse Oximeter] 62 Pulse Rate [Right Pulse Oximeter] Respiratory Rate 18 16 16 Blood Pressure 105/72 Blood Pressure [Le ft Arm] Blood Pressure [Ri ght Upper Arm] Pulse Oximetry 98 100 Oxygen Delivery Me thod Room Air Room Air Results Labs Labs: Abnormal lab results 04/17/25 04/17/25 Range/Units 02:30 03:12 BUN < 2 L (5-24) mg/dL C-Reactive Protein < 0.5 L (0.5-1.0) mg/dL Lipase 21 L (23-300) U/L Urine Ketones Trace A (Negative) Urine Blood 2+ A (Negative) Ur Leukocyte Esterase 1+ A (Negative) Urine RBC 2-5 A (0-2) Urine WBC 5-10 A (0-5) Urine Bacteria Few A (None) Diabetes panel 04/17/25 Range/Units 03:12 Sodium 138 (135-149) mmol/L Potassium 3.8 (3.6-5.1) mmol/L Chloride 103 (96-114) mmol/L Carbon Dioxide 27 (20-32) mmol/L BUN < 2 L (5-24) mg/dL Creatinine 0.5 (0.5-1.5) mg/dL Glucose 105 (60-115) mg/dL Calcium 9.6 (8.4-10.6) mg/dL AST 26 (12-35) U/L ALT 19 (4-35) U/L Alkaline Phosphatase 72 (40-150) U/L Total Protein 7.8 (6.0-8.3) g/dL Albumin 4.3 (3.3-5.0) g/dL Calcium panel 04/17/25 Range/Units 03:12 Calcium 9.6 (8.4-10.6) mg/dL Albumin 4.3 (3.3-5.0) g/dL Pituitary panel 04/17/25 Range/Units 03:12 Sodium 138 (135-149) mmol/L Potassium 3.8 (3.6-5.1) mmol/L Chloride 103 (96-114) mmol/L Carbon Dioxide 27 (20-32) mmol/L BUN < 2 L (5-24) mg/dL Creatinine 0.5 (0.5-1.5) mg/dL Glucose 105 (60-115) mg/dL Calcium 9.6 (8.4-10.6) mg/dL Adrenal panel 04/17/25 Range/Units 03:12 Sodium 138 (135-149) mmol/L Potassium 3.8 (3.6-5.1) mmol/L Chloride 103 (96-114) mmol/L Carbon Dioxide 27 (20-32) mmol/L BUN < 2 L (5-24) mg/dL Creatinine 0.5 (0.5-1.5) mg/dL Glucose 105 (60-115) mg/dL Calcium 9.6 (8.4-10.6) mg/dL Total Bilirubin 0.5 (0.1-1.5) mg/dL AST 26 (12-35) U/L ALT 19 (4-35) U/L Alkaline Phosphatase 72 (40-150) U/L Total Protein 7.8 (6.0-8.3) g/dL Albumin 4.3 (3.3-5.0) g/dL All other labs normal. Imaging Abdominal ultrasound report/results: report reviewed and image reviewed Progress Note:A&P Assessment and plan (1) Acute cholecystitis: Status: Acute Assessment and Plan: Patient with persistent at the gastric abdominal pain and nausea. She has completed a course for H pylori, with no improvement in her symptoms making gastritis less likely. On ultrasound imaging she does have stones with some mild gallbladder wall thickening. Her LFTs are within normal limits, no concern for choledocholithiasis. On examination today she has no discomfort. This is her 4th emergency room visit for these symptoms. I am suspicious for biliary colic versus chronic cholecystitis. I had a detailed conversation with the patient regarding the diagnosis of chronic cholecystitis. We discussed the treatment options including observation with diet modification and laparoscopic cholecystectomy. We discussed the risks of surgery (including but not limited to) the risks of bleeding, infection, injury to other structures in the abdomen including bile duct injury, bile leak and conversion to an open operation. We discussed the possibility that the patient's pain not improve with surgery. We discussed the possibility of permanent post-operative diarrhea that may require medical management. Additionally, the conceivably of complications requiring additional surgery or further hospitalization were also discussed including the risks of LA, respiratory failure, stroke and blood clots. The patient voiced an understanding of our conversation, had the opportunity to ask questions, agreed to accept the risks of surgery and asked that we proceed with surgery. Plan OR for laparoscopic cholecystectomy
--- NOTE | 2025-04-17 10:42 | P.GSOP_ITS ---
Operative Note Date of procedure: 04/17/25 Pre-op diagnosis: Chronic cholecystitis Post-op diagnosis: Same Type of Procedure: Laparoscopic cholecystectomy Indications: Patient is a 29-year-old female who presented to the emergency department with persistent abdominal pain and nausea. Symptoms were concerning for chronic cholecystitis. Risks and benefits of operative intervention were discussed at length with the patient. Risks included but was not limited to: Bleeding, infection, risk of damage to surrounding structures, possible need for additional procedures, possible need to convert to an open operation and postoperative complications such as pneumonia, pulmonary emboli or ND. All questions and concerns were addressed with the patient agreeing to proceed. Procedure Description: After discussing the risks and benefits of the procedure, the patient signed informed consent.? The operative site was marked and the patient was brought to the operating room and placed on the operating table in supine position.? Care was taken to pad the patient's pressure points.?? The patient was then intubated by anesthesia.?? The operative site was then prepped and draped in the usual sterile fashion.? A time-out was then performed. Entrance to the abdomen was gained via a 5 mm Visiport in the left upper quadrant. The abdomen was insufflated and briefly surveyed for signs of injury. There was none. 11 mm umbilical port was placed as well as 2 working ports along the right costal margin. Patient was then placed in reverse Trendelenburg position with the right side up. The gallbladder fundus was grasped and retracted cephalad. The infundibulum was grasped. A combination of hook cautery and blunt dissection was used to carefully dissect out the cystic duct and artery until they could clearly be seen entering the gallbladder without any intervening structures. The gallbladder was dissected off the cystic plate to achieve the critical view. Once this was achieved the cystic duct and artery were each clipped with 2 clips proximally and 1 clip distally and transected wit h the scissors. The gallbladder was then taken off of the liver bed. A small artery on the liver bed was clipped with a single 5 mm clip for hemostasis. Once the gallbladder was completely off it was then removed from the abdomen using an Endo-Catch bag. The gallbladder bed was surveyed for hemostasis. The umbilical port fascia was closed with 0 Vicryl. The ports were then removed under direct vision. The skin was closed with absorbable subcuticular suture. Instrument sponge and needle counts were correct at the end of the case. The patient was then woken and transferred to the PACU in stable condition. Findings: Cholelithiasis Anesthesia: GETA Surgeon: Leah Lucero MD Estimated blood loss (mL): 5 Specimen: Gallbladder Condition: stable Disposition: PACU
--- NOTE | 2025-04-17 10:52 | P.ANES_ITS ---
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
--- NOTE | 2025-04-17 10:52 | W.ANESCHARGE ---
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
[2025-04-17] MEDS: LACTATED RINGERS 1000 ML 1,000 ML 100 ML IV (11:03)
[2025-04-17] MEDS: HYDROCODONE-ACETAMIN 5-325 MG 1 TAB PO ×3 (13:05→22:56)
[2025-04-17] MEDS: CALCIUM CARBONATE 500 MG CHEW PO (13:05)
[2025-04-17] MEDS: MAG HYDROX/ALUMINUM HYD/SIMETH 30 ML ORAL.SUSP 15 ML PO ×2 (15:46→22:05)
--- NOTE | 2025-04-17 17:45 | PC.NURSE ---
End of Shift: Patient pleasant and cooperative. Patient vitally stable, lungs clear, BS WNL, IV SL and intact. Patient rates abdominal pain at most 7-8/10 and minimum 5/10. Dilauded and toradol given once, and 2 of norco given twice. Patient reports gas pains in her back and should are more bothersome. Patient ambulated in the [place] and urinated 850. Patient is tolerating regular diet, eating half of a bagel and some fresh fruit, patient does not have much of an appetite. Patient's abdominal lap sites x4 or C/D/I with scan dried blood. Patient given tums and Maalox for gas.
[2025-04-17] MEDS: ONDANSETRON 2 MG/ML inj IVP (19:02)
[2025-04-18 03:58] VITALS: BP 116/80; PULSE 72; RESP 16; TEMP 36.6; O2SAT 99
[2025-04-18] MEDS: HYDROCODONE-ACETAMIN 5-325 MG 1 TAB PO ×2 (04:03→11:04)
--- NOTE | 2025-04-18 05:47 | PC.NURSE ---
end of shift [id number]: Pt AxOx4, pleasant, and cooperative with cares. Patient reports abdominal pain and gas pain during shift. PRN medication was given, walks were encouraged, and repositioning was completed. Relief noted by Pt. Continent of the bladder, SBA with transfers. Lap sites remain CDI, scant dried blood. Pt tolerating regular diet well. Family at bedside. Pt was able to rest for majority of the shift. Pt appears resting in bed with call light in reach.
[2025-04-18 07:00] VITALS: BP 107/73; PULSE 70; RESP 16; TEMP 37; O2SAT 99
--- NOTE | 2025-04-18 11:17 | P.DS_ITS ---
DS: Providers Provider Date Seen: 04/18/25 Primary care physician: Estefanía Mercado PA-C Attending Physician on discharge: Leah Lucero MD DS: Summary Hospital Course Hospital Course: Patient was admitted to the hospital with persistent nausea and abdominal pain. Concern for cholecystitis. She went to the operating room for laparoscopic cholecystectomy. No significant inflammation, cholelithiasis appreciated. On postop day 1 she noted improvement in her nausea and pain. At the time of discharge she was tolerating a regular diet, ambulated without difficulty and pain was well controlled. Time Spent with Patient Time attestation: Total time spent providing and/or coordinating discharge services: Exam Narrative: Exam Narrative: General: Alert and oriented, no acute distress Respiratory: Equal breath rise bilaterally, maintained on room air CV: Well perfused Abdomen: Soft, nontender nondistended. Incisions with Steri-Strips in place clean/dry/intact Const: Vital Signs, click to edit/add: Vital Signs - 24 hr 04/17/25 11:26 04/17/25 11:30 04/17/25 11:45 Temperature 98.2 F 98 F 98.4 F Pulse Rate [Left P ulse Oximeter] 73 93 84 Respiratory Rate 16 16 14 Blood Pressure [Le ft Arm] 111/85 114/80 106/84 Pulse Oximetry 97 96 94 Oxygen Delivery Me thod Room Air Room Air Room Air 04/17/25 12:00 04/17/25 12:15 04/17/25 12:45 Temperature 98.4 F 98.9 F 99.4 F Pulse Rate [Left P ulse Oximeter] 87 90 98 Respiratory Rate 14 14 14 Blood Pressure [Le ft Arm] 108/77 112/69 111/76 Pulse Oximetry 94 95 98 Oxygen Delivery Me thod Room Air Room Air Room Air 04/17/25 13:15 04/17/25 14:15 04/17/25 15:26 Temperature 99.3 F 98 F 97.8 F Pulse Rate [Left P ulse Oximeter] 94 102 H 108 H Respiratory Rate 16 14 16 Blood Pressure [Le ft Arm] 110/76 120/74 128/84 Pulse Oximetry 98 98 97 Oxygen Delivery Me thod Room Air Room Air Room Air 04/17/25 15:26 04/17/25 15:26 04/17/25 16:28 Temperature 98.1 F Pulse Rate [Left P ulse Oximeter] 108 H 95 Respiratory Rate 16 16 16 Blood Pressure [Le ft Arm] 113/75 Pulse Oximetry 97 97 Oxygen Delivery Me thod Room Air Room Air 04/17/25 17:15 04/17/25 19:00 04/17/25 22:15 Temperature 98 F 97.8 F Pulse Rate [Left P ulse Oximeter] 89 97 Respiratory Rate 16 16 16 Blood Pressure [Le ft Arm] 115/77 114/90 H Pulse Oximetry 98 96 99 Oxygen Delivery Me thod Room Air Room Air Room Air 04/17/25 22:15 04/18/25 03:58 04/18/25 07:00 Temperature 98.1 F 97.8 F Pulse Rate [Left P ulse Oximeter] 67 72 Respiratory Rate 16 16 16 Blood Pressure [Le ft Arm] 111/74 116/80 Pulse Oximetry 99 99 99 Oxygen Delivery Me thod Room Air Room Air Room Air 04/18/25 07:00 04/18/25 07:00 Temperature 98.6 F Pulse Rate [Left P ulse Oximeter] 70 70 Respiratory Rate 16 16 Blood Pressure [Le ft Arm] 107/73 Pulse Oximetry 99 Oxygen Delivery Me thod Room Air DS: Data Data Completed and Pending Labs on day of discharge: Preliminary micro results at discharge 04/17/25 02:30 Urine Culture - Preliminary Urine,Clean Catch < 50,000 COL/ML MIXED GRAM POSITIVE LUIS ISOLATED NO FURTHER WORKUP Discharge Plan Discharge Disposition: Home w/ Parent or Adult Discharging Surgeon: Leah Lucero Follow-Up Appointment: 2 week follow up Prescriptions: New hydrocodone-acetaminophen 5-325 mg tablet 1 tab PO Q6H PRN (Reason: pain) Qty: 15 0RF senna 8.6 mg capsule 8.6 mg PO DAILY PRN (Reason: constipation) Qty: 90 0RF Continued famotidine 20 mg tablet 20 mg PO BID metoclopramide HCl 10 mg tablet 10 mg PO QID omeprazole 20 mg capsule,delayed release(DR/EC) 20 mg PO BID Activity Level: No strenuous activity Activity Detail: Activity as tolerated. Avoid strenuous activity. No lifting greater than 20 lb for 2 weeks. Discharge Diet: Low Fat/Low Cholesterol Diet Detail: Continue on a low-fat diet for the next 2 weeks. Patient Instructions: Hydrocodone/Acetaminophen (By mouth), Senna (By mouth), Post-Operative Instructions: Laparoscopic Cholecystectomy Additional Instructions: You were prescribed a narcotic pain medication. In addition you may supplement with Tylenol and/or ibuprofen. Be sure to not exceed greater than 4 g of Tylenol in a 24 hour period. While on narcotic pain medicine please take stool softeners. A prescription of stool softeners has been sent to the pharmacy. Stop if having greater than 2 stools per day. You have Steri-Strips dressings in place, allow these to fall off on their own. Okay to shower starting tomorrow. Do not soak in a bath or swim for 2 weeks. Follow-up with Dr. Lucero in 2-3 weeks. Please call if you are experiencing severe pain, nausea, vomiting, difficulty urinating, fever or not had a bowel movement in 4 days after surgery. Follow-up: Leah Lucero MD [Staff Physician, General Surgery] - 04/27/25 9:45 am Referral Note: [facility] for hospital follow-up. Estefanía Mercado PA-C [Primary Care Provider, Family Practice] Moses Rajan MD [Staff Physician, Family Practice] Discharge Orders: Discharge Order (Routine); Ordered 04/18/25 Ordered By: Leah Lucero
--- NOTE | 2025-04-18 12:01 | PC.NURSE ---
Discharge: Patient alert and oriented, VSS, on RA tolerating a reg. diet. denies N/V/SOB rates pain 02/22. PRN norco administered x1. IV removed for D/C, tip intact. patient using active Ice to OP site. 4 lap sites, C/D/I. patient ambulating indep. to BR and up to chair for meals. Patient discharged to home today at 1153 accompanied by sister. Discharge instructions given and signed. patient verbalized understanding of instructions. Belongings sheet signed.
== END 2025-04-18 11:53 | disposition home or self-care (01) ==
LOC: ED 05:02 → SS 05:36 → MEDSURG 05:37
PROVIDERS: Emergency Provider Family Medicine; PCP Physician Assistant; Visit Provider Surgery
PROC: 0FT44ZZ Resection of Gallbladder, Percutaneous Endoscopic Approach (ICD-10-PCS; CPT 47562; principal; 2025-04-17 09:45)
DX: K80.12 Calculus of gallbladder with acute and chronic cholecystitis without obstruction (principal); R10.11 Right upper quadrant pain; K21.9 Gastro-esophageal reflux disease without esophagitis
CPT/HCPCS: 47562; 00790; 36415; 76705; 80053; 81001; 81025; 83690; 85025; 86140; 87086; 88304; 94761; 99284; 99285; A9270; J0330; J0665; J1100; J1171; J1885; J2250; J2405; J2543; J2704; J2710; J3010; J7120